=== PATIENT | female | born 1965 | race Caucasian/White ===

== ENCOUNTER 2022-05-16 08:06 | Emergency (ER) | payer OTHER, SELFPAY ==
[2022-05-16 08:11] VITALS: BP 131/86; PULSE 63; RESP 14; TEMP 36.6; O2SAT 99; BMI 25.8
--- NOTE | 2022-05-16 08:45 | ED.GENADULT ---
HPI - General Adult General Time Seen by Provider: 08:45 Date Seen: 05/16/22 Chief complaint: Shortness of Breath/Dyspnea Stated complaint: Difficulty breathing/muscle aches and pain Time Seen by Provider: 05/16/22 08:45 Source: patient and RN notes reviewed Mode of arrival: ambulatory Limitations: no limitations History of Present Illness HPI narrative: Patient is a 57-year-old female coming in with increasing respiratory symptoms and concerned that she has maybe something more than just a regular cold going on. She is sick about 10 days now, got sick a week ago last Monday, today is now Monday. She is woke up sweaty at times but has not taken her temperature. She has been coughing and the cough has been productive throughout this. She did have a negative home COVID test maybe about 6-7 days ago. She has had nasal congestion, no otalgia but ears were itchy at 1 point. She had 1 day of diarrhea with this early on. No other GI symptoms. She has tried her rescue inhaler for her asthma and did not feel like it helped at all. She is feeling short of breath with talking, standing or walking. She also has muscle aches. She is on no maintenance medicines for her asthma. Related Data Home Medications Medication Instructions Recorded Confirmed aspirin 81 mg capsule 81 mg PO DAILY 05/16/22 05/16/22 cetirizine 10 mg tablet (24Hour 10 mg PO DAILY 05/16/22 05/16/22 Allergy) Allergies Allergy/AdvReac Type Severity Reaction Status Date / Time Penicillins Allergy Unknown Rash Verified 05/16/22 08:18 Review of Systems Status of ROS: Reports: 6 or more systems reviewed and unremarkable except as noted in History and below PFSH PFS Social History Smoking Status: Never smoker How often do you have a drink containing alcohol: never AUDIT-C Alcohol total score: 0 Non-prescribed substance use: denies use Exam Const: Vital Signs, click to edit/add: Vital Signs - 24 hr 05/16/22 08:11 05/16/22 11:00 Temperature 97.9 F Pulse Rate [Pulse Oximeter] 63 Respiratory Rate 14 Blood Pressure [Ri ght Upper Arm] 131/86 Pulse Oximetry 99 97 Oxygen Delivery Me thod Room Air Documenting provider has reviewed patient's vital signs: yes Common normals: no apparent distress, average body habitus, oriented x3, no limitations, healthy appearing, alert and well nourished General appearance: cooperative, comfortable, well kempt and well developed HENMT: Common normals: normocephalic, head/scalp atraumatic, hearing grossly normal bilaterally, external ears normal, TM's normal bilaterally, external nose normal, nasal mucous membranes and turbinates normal, moist oral mucous membranes, oropharynx normal, dentition normal and gingiva normal Head and scalp: normocephalic and atraumatic Nose: external nose normal and nasal mucous membranes and turbinates normal External ear: external ears normal Tympanic membrane: TM's normal bilaterally Eye: Common normals: PERRL, EOMs intact bilaterally, conjunctivae normal and no scleral icterus Conjunctiva: conjunctiva(e) normal Pupil: PERRL Neck & C-Spine: Common normals: full ROM, no lymphadenopathy, supple, no meningeal signs, no JVD and thyroid normal Thyroid: thyroid normal Chest: Common normals: inspection of chest normal Resp: Common normals: normal respiratory effort, no retractions and no use of accessory muscles Effort & inspection: able to speak in complete sentences Other: Breath sounds are distant but clear. Here no wheezing or crackles. She is not tachypneic, is wearing a KN95 and can converse through this. Speech is normal, not hoarse. Cardio: Common normals: no JVD, regular rate, regular rhythm, S1 normal heart sound, S2 normal heart sound, no gallops, no clicks and no murmurs Rate: regular rate Rhythm: regular rhythm Heart sounds: S1 normal and S2 normal GI: Common normals: Normal to inspection, nondistended, normoactive bowel sounds present, soft to palpation, non-tender, no hepatosplenomegaly and no masses Palpation: soft and no hepatosplenomegaly Neuro: Common normals: oriented x3 Sensorium/orientation: alert Meningeal signs: no meningeal signs Psych: Appearance: well kempt Course Course Hospital Course: Patient is oxygenating excellently and 99%, will have her on pulse oximetry while she is here waiting for her workup. Nursing staff had appropriately collected a triple swab. Have reviewed with patient she is out of window for treatment on any these viruses but it may be important for us to know in our expectations of her disease course what we are dealing with. I would also like to proceed with a portable chest x-ray and obtain a CBC. Reviewed with her that the white count helps me risk stratify for viruses verses bacteria. She is in agreement with this plan, she is stable. She is not tachypneic, not hypoxic, not tachycardic. This likely represents a viral upper respiratory infection, rule out need for antibiotics with secondary pneumonia setting in. Reevaluation(s) Reevaluation #1: Reviewed chest x-ray with some chronic interstitial findings. Nursing staff was ambulating her with pulse oximetry while I was in the room. She was above 99%. She is feeling short of breath with this though. Discussed with her the possibility of doing a chest CT PE protocol to see the burden of possible COVID pneumonia that could be there, rule out pulmonary emboli. Did review with her it would be less likely oxygenating the way she is in not being tachycardic to have pulmonary emboli but she has had COVID for about 10 days in his clinically worsening with shortness of breath. I would feel much more confident if we could have this chest CT PE protocol done. She is agreement to do this. Obviously reviewed with her that she is COVID positive. She understands home antigen tests may not have picked it up, she may have done it too early at home. She has not had COVID before, she states she has taken all the vaccines. Time: 10:30 Reevaluation #2: Reviewed patient's negative chest CT PE protocol, no infiltrate, did provide her a copy of the report. She is also advised that I did add on a troponin which is 0.00 or normal. Her symptoms are likely just result of COVID and no secondary finding. She does have a pulse oximeter at home. Time: 12:43 Vital Signs Vital signs: Initial Vital Signs Temperature 97.9 F 05/16/22 08:11 Temperature Source Temporal Artery Scan 05/16/22 08:11 Pulse Rate 63 05/16/22 08:11 Pulse Rhythm 05/16/22 08:11 Respiratory Rate 14 05/16/22 08:11 Blood Pressure 131/86 05/16/22 08:11 Blood Pressure Mean 101 05/16/22 08:11 Blood Pressure Position Sitting 05/16/22 08:11 Pulse Oximetry 99 05/16/22 08:11 Oxygen Delivery Method 05/16/22 08:11 Vital Signs Temperature 97.9 F 05/16/22 08:11 Pulse Rate 63 05/16/22 08:11 Respiratory Rate 14 05/16/22 08:11 Blood Pressure 131/86 05/16/22 08:11 Pulse Oximetry 99 05/16/22 08:11 Oxygen Delivery Method 05/16/22 08:11 Temperature 97.9 F 05/16/22 08:11 Pulse Rate 63 05/16/22 08:11 Respiratory Rate 14 05/16/22 08:11 Blood Pressure 131/86 05/16/22 08:11 Pulse Oximetry 97 05/16/22 11:00 Oxygen Delivery Method 05/16/22 08:11 Medical Decision Making Lab Data Lab results reviewed: Yes I reviewed the patient's lab results Labs: Lab Results 05/16/22 05/16/22 05/16/22 Range/Units 08:24 09:05 09:05 WBC 4.38 L (4.50-11.00) K/uL RBC 4.41 (4.00-5.20) m/uL Hgb 12.5 (12.0-16.0) gm/dL Hct 39.5 (33.0-51.0) % MCV 90 (80-100) fL MCH 28 (26-34) pg MCHC 32 (32-36) gm/dL RDW Coeff of [place] 12.6 (11.5-15.5) % Plt Count 271 (140-440) K/uL Neut % (Auto) 70.1 (42.0-72.0) % Lymph % (Auto) 17.4 L (20-44) % [place] % (Auto) 6.6 (0.0-11.0) % Eos % (Auto) 4.8 (0.0-7.0) % Baso % (Auto) 0.9 (0.0-3.0) % Neut # (Auto) 3.10 (1.7-7.0) K/uL Lymph # (Auto) 0.80 L (0.90-2.90) K/uL [place] # (Auto) 0.30 (0.00-0.90) K/UL Eos # (Auto) 0.20 (0.00-0.50) K/uL Baso # (Auto) 0.00 (0.00-0.30) K/uL D-Dimer Quant (PE/DVT) 0.56 H (0.00-0.50) ug/ml SARS-CoV-2 (PCR) POSITIVE SARS-CoV-2 A (Negative) Influenza Type A (PCR) Negative PCR FLU A (Negative) Influenza Type B (PCR) Negative PCR FLU B (Negative) RSV (PCR) Negative PCR RSV (Negative) POC Troponin I (0.01-0.04) ng/ml 05/16/22 Range/Units 12:10 WBC (4.50-11.00) K/uL RBC (4.00-5.20) m/uL Hgb (12.0-16.0) gm/dL Hct (33.0-51.0) % MCV (80-100) fL MCH (26-34) pg MCHC (32-36) gm/dL RDW Coeff of [place] (11.5-15.5) % Plt Count (140-440) K/uL Neut % (Auto) (42.0-72.0) % Lymph % (Auto) (20-44) % [place] % (Auto) (0.0-11.0) % Eos % (Auto) (0.0-7.0) % Baso % (Auto) (0.0-3.0) % Neut # (Auto) (1.7-7.0) K/uL Lymph # (Auto) (0.90-2.90) K/uL [place] # (Auto) (0.00-0.90) K/UL Eos # (Auto) (0.00-0.50) K/uL Baso # (Auto) (0.00-0.30) K/uL D-Dimer Quant (PE/DVT) (0.00-0.50) ug/ml SARS-CoV-2 (PCR) (Negative) Influenza Type A (PCR) (Negative) Influenza Type B (PCR) (Negative) RSV (PCR) (Negative) POC Troponin I 0.00 L (0.01-0.04) ng/ml Imaging Data Chest x-ray: Attestation: I have reviewed the pertinent imaging results. My impression: I see no definitive infiltrate on my preliminary review. Radiologist's impression: Patient: PEG DONOVANDION Facility:[facility] Patient ID:?[id number] Site Patient ID:?[id number]. Site :?[id number] Study:?XRay Chest PCXR-05/16/2022 9:58:15 AM Ordering Physician:Sahra Raygoza Final Report: indication: Cough times 10 days, shortness of breath, asthma Comparison: None available. Technique: Single AP view chest Findings: There is hyperinflation and chronic interstitial change. There is no focal consolidation, effusion, or pneumothorax. The cardiomediastinal silhouette is within normal limits. The bony thorax is grossly intact. Impression: Mild chronic interstitial changes without dense consolidation. Dictated by William Gamboa MD @ 05/16/2022 10:04:38 AM (Electronic Signature) CT scan - chest: Attestation: I have reviewed the pertinent imaging results. Radiologist's impression: Patient: PEG TRIVEDI Facility:?[facility] Patient ID:?[id number] Site Patient ID:?[id number]. Site :?1965 Study:?CT Chest Angio PE 95cc ISOVUE 370-05/16/2022 11:36:12 AM Ordering Physician:?Curly Raygoza Final Report: INDICATION: Shortness of breath. TECHNIQUE: CT chest PE was acquired with 100 cc Isovue 370 IV contrast. COMPARISON: None. FINDINGS: Heart and vasculature: Contrast opacification of the pulmonary arterial tree is adequate. No sign of pulmonary embolism. Heart size is normal. Thoracic aorta and pulmonary artery are normal in caliber. Lungs and pleura: Biapical scarring. Scattered atelectasis, including in the right middle lobe. No suspicious nodules or infiltrates. No pleural effusions, pleural thickening, or pneumothorax. Lymph nodes/mediastinum: Mildly prominent right hilar lymph node, likely reactive. No mediastinal, hilar, or axillary adenopathy. Chest wall: No masses. Upper abdomen: No acute or significant findings. Bones: Unremarkable for age. IMPRESSION: No pulmonary embolism, as questioned. No focal consolidations. Please note that all CT scans at this facility use dose modulation, iterative reconstruction, and/or weight-based dosing when appropriate to reduce radiation dose to as low as reasonably achievable. Dictated by Johnathan Tran MD @ 05/16/2022 12:06:59 PM (Electronic Signature) Critical Care Time Critical Care Time Critical Care Time: No Discharge Plan Discharge Clinical Impression: COVID-19, Shortness of breath Patient Disposition: Home, Self-Care Condition: Stable Instructions: COVID-19 (Coronavirus Disease 2019) (ED) Additional Instructions: Monitor pulse oximetry. If your pulse oximeter starts consistently reading below 90%, do need to be re-evaluated. Likewise, if you feel you are worsening, are developing increasing shortness of breath, worsening cough, new or concerning symptoms to you, I would advise you to seek re-evaluation. No antibiotics or steroids are indicated at this point. Your white blood count is still low suggestive of COVID. I would recommend isolation until you are starting to improve from your symptoms. Activity Level: Activity as Tolerated Prescriptions: No Action aspirin 81 mg capsule 81 mg PO DAILY cetirizine [24Hour Allergy] 10 mg tablet 10 mg PO DAILY Follow Up/Referrals: Sunny Hendricks MD [Primary Care Provider] - Stand Alone Forms: [employer] Info Instructions
--- NOTE | 2022-05-16 08:53 | CRLHL7_ITS ---
For Patients: As a result of the Century Cures Act, medical imaging exams and procedure reports are released immediately into your electronic medical record. You may view this report before your referring provider. If you have questions, please contact your health care provider. indication: Cough times 10 days, shortness of breath, asthma Comparison: None available. Technique: Single AP view chest Findings: There is hyperinflation and chronic interstitial change. There is no focal consolidation, effusion, or pneumothorax. The cardiomediastinal silhouette is within normal limits. The bony thorax is grossly intact. Impression: Mild chronic interstitial changes without dense consolidation. Dictated by William Gamboa MD @ 05/16/2022 10:04:38 AM (Electronically Signed)
[2022-05-16 09:09] LABS: PCR FLU A Negative PCR FLU A (Negative); PCR FLU B Negative PCR FLU B (Negative); PCR RSV Negative PCR RSV (Negative)
[2022-05-16 09:11] LABS: SARS PCR* POSITIVE SARS-CoV-2 (Negative)
[2022-05-16 09:20] LABS: Basophils Percent Auto 0.9 % (0.0-3.0); Eosinophils Percent Auto 4.8 % (0.0-7.0); Hematocrit 39.5 % (33.0-51.0); Hemoglobin* 12.5 gm/dL (12.0-16.0); Immature Granulocytes Pct Auto 0.2 %; Lymphocytes Percent Auto 17.4 % (20-44); Mean Corpuscular HGB Conc 32 gm/dL (32-36); Mean Corpuscular Hemoglobin 28 pg (26-34); Mean Corpuscular Volume 90 fL (80-100); Monocytes Percent Auto 6.6 % (0.0-11.0); Neutrophils Percent Auto 70.1 % (42.0-72.0); Platelet Count* 271 K/uL (140-440); RDW Coefficient of Variation % 12.6 % (11.5-15.5); Red Blood Count 4.41 m/uL (4.00-5.20); White Blood Count* 4.38 K/uL (4.50-11.00)
[2022-05-16 09:23] LABS: Slide Review Reflex No
[2022-05-16 10:28] LABS: D Dimer Quantitative* 0.56 ug/ml (0.00-0.50)
--- NOTE | 2022-05-16 10:32 | CRLHL7_ITS ---
For Patients: As a result of the Century Cures Act, medical imaging exams and procedure reports are released immediately into your electronic medical record. You may view this report before your referring provider. If you have questions, please contact your health care provider. INDICATION: Shortness of breath. TECHNIQUE: CT chest PE was acquired with 100 cc Isovue 370 IV contrast. COMPARISON: None. FINDINGS: Heart and vasculature: Contrast opacification of the pulmonary arterial tree is adequate. No sign of pulmonary embolism. Heart size is normal. Thoracic aorta and pulmonary artery are normal in caliber. Lungs and pleura: Biapical scarring. Scattered atelectasis, including in the right middle lobe. No suspicious nodules or infiltrates. No pleural effusions, pleural thickening, or pneumothorax. Lymph nodes/mediastinum: Mildly prominent right hilar lymph node, likely reactive. No mediastinal, hilar, or axillary adenopathy. Chest wall: No masses. Upper abdomen: No acute or significant findings. Bones: Unremarkable for age. IMPRESSION: No pulmonary embolism, as questioned. No focal consolidations. Please note that all CT scans at this facility use dose modulation, iterative reconstruction, and/or weight-based dosing when appropriate to reduce radiation dose to as low as reasonably achievable. Dictated by Johnathan Tran MD @ 05/16/2022 12:06:59 PM (Electronically Signed)
--- NOTE | 2022-05-16 10:35 | ED.NURSE ---
Pt walked around room, Sats 100%. Pt tolerated ambulation well. notified.
[2022-05-16 11:00] VITALS: O2SAT 97
== END 2022-05-16 12:57 | disposition home or self-care (01) ==
PROVIDERS: Emergency Provider Family Medicine; PCP Family Medicine
DX: U07.1 COVID-19 (principal); R06.02 Shortness of breath
CPT/HCPCS: 36415; 71045; 71260; 84484; 85025; 85379; 87502; 87634; 87635; 94761; 99284; 99285; Q9967

== ENCOUNTER 2022-07-04 14:17 | Outpatient (CLI) | payer OTHER, SELFPAY | END 2022-07-04 14:18 | disposition home or self-care (01) | PROVIDERS: PCP Family Medicine; Visit Provider Internal Medicine | DX: F43.0 Acute stress reaction (principal) | CPT/HCPCS: 80053; 84443 ==

== ENCOUNTER 2022-07-26 08:08 | Outpatient (CLI) | payer OTHER, SELFPAY | END 2022-07-26 08:09 | disposition home or self-care (01) | LOC: NFLDREF 07-27 18:13 | PROVIDERS: PCP Family Medicine; Referring Provider Family Medicine; Visit Provider Family Medicine | DX: Z13.6 Encounter for screening for cardiovascular disorders (principal) | CPT/HCPCS: 80053; 80061 ==

== ENCOUNTER 2022-11-03 13:04 | Outpatient (CLI) | payer OTHER, SELFPAY ==
--- NOTE | 2022-11-03 13:20 | CRLHL7_ITS ---
For Patients: As a result of the Cures Act, medical imaging exams and procedure reports are released immediately into your electronic medical record. You may view this report before your referring provider. If you have questions, please contact your health care provider. BILATERAL SCREENING MAMMOGRAM WITH COMPUTER-AIDED DETECTION AND TOMOSYNTHESIS TECHNIQUE: CC and MLO views were obtained. These mammographic images have been obtained using full-field digital technique. These mammographic images were interpreted with the benefit of computer-aided detection. Breast Tomosynthesis was used in this interpretation. COMPARISON FILM: 11/30/20, 08/05/16, 04/15/14. FINDINGS: There are scattered areas of fibroglandular density IMPRESSION: There is no radiographic evidence for malignancy. ASSESSMENT: BI-RADS Category 1: Negative RECOMMENDATION: Routine screening mammogram in 1 year. A lay language report of this examination will be provided to the patient. Baltazar Pemberton M.D. Diagnostic Radiologist [email or web address] ISAIAS/[email or web address] / be/Dictated by: Baltazar Pemberton MD @ 11/04/2022 8:26:00 AM (Electronically Signed)
== END 2022-11-03 13:05 | disposition home or self-care (01) ==
LOC: MAMMO 13:05
PROVIDERS: PCP Family Medicine; Visit Provider Family Medicine
DX: Z12.31 Encounter for screening mammogram for malignant neoplasm of breast (principal)
CPT/HCPCS: 77063; 77067

== ENCOUNTER 2022-11-07 13:00 | Outpatient (RCR) | payer OTHER, SELFPAY | END 2022-11-07 13:49 | disposition home or self-care (01) | PROVIDERS: PCP Family Medicine; Visit Provider Family Medicine | DX: M25.561 Pain in right knee (principal); M25.562 Pain in left knee; Z51.89 Encounter for other specified aftercare | CPT/HCPCS: 97110; 97112; 97161 ==

== ENCOUNTER 2023-01-11 08:42 | Emergency (ER) | payer OTHER, SELFPAY ==
[2023-01-11 08:47] VITALS: BP 171/102; PULSE 73; RESP 18; TEMP 35.9; O2SAT 99; BMI 27.4
--- NOTE | 2023-01-11 09:03 | CRLHL7_ITS ---
For Patients: As a result of the Century Cures Act, medical imaging exams and procedure reports are released immediately into your electronic medical record. You may view this report before your referring provider. If you have questions, please contact your health care provider. INDICATION: Fall. Left cheek and jaw pain.. TECHNIQUE: CT head without contrast. COMPARISON: None. FINDINGS: CSF spaces: Within normal limits for age. Brain parenchyma and extra-axial spaces: The rinaldi-white differentiation is normal. No sign of mass, hemorrhage, or midline shift. No extra-axial fluid collection. Incidental Chiari 1 malformation is the cerebellar tonsils extend 11 mm below the foramen magnum (series 4; image 39). Skull base and calvarium: The visualized paranasal sinuses and mastoid air cells demonstrate no acute or significant findings. The visualized orbits are grossly unremarkable. No skull fractures. Bilateral osteoarthrosis of the temporomandibular joints. IMPRESSION: No acute traumatic injury is identified. 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 Please note that all CT scans at this facility use dose modulation, iterative reconstruction, and/or weight-based dosing when appropriate to reduce radiation dose to as low as reasonably achievable. Dictated by Tai Sorenson MD @ 01/11/2023 9:32:28 AM (Electronically Signed)
--- NOTE | 2023-01-11 09:03 | CRLHL7_ITS ---
For Patients: As a result of the Cures Act, medical imaging exams and procedure reports are released immediately into your electronic medical record. You may view this report before your referring provider. If you have questions, please contact your health care provider. INDICATION: Fall. Left cheek and jaw pain. TECHNIQUE: CT maxillofacial without contrast. COMPARISON: None. FINDINGS: Extensive streak artifact associated with dental amalgam limits interpretation of the regional anatomy affected by the streak artifact. Facial bones: No fractures or bone lesions. Specifically the nasal bones, temporomandibular joints, maxilla and mandible appear intact. Mild bilateral symmetrical temporomandibular joint osteoarthrosis. Orbits and globes: Unremarkable. Globes are intact. No sign of intraorbital hemorrhage or emphysema. Sinuses: No evidence of hemo sinus. Mild bilateral maxillary sinus and right frontal recess mucosal thickening. An small retention cyst along the roof of the sphenoid sinus. Rightward deviation of the anterior cartilaginous nasal septum. Left-sided posterior bony nasal septal spur. Soft tissues: Partially obscured (by streak artifact associated with dental amalgam) subcutaneous fat irregular hyperdensity consistent with a soft tissue hematoma associated with surrounding subcutaneous fat stranding consistent with edema. IMPRESSION: Soft tissue hematoma (obscured by beam hardening artifact associated with dental amalgam) superficial to the left maxillary alveolar ridge with surrounding subcutaneous edema. No fracture. Please note that all CT scans at this facility use dose modulation, iterative reconstruction, and/or weight-based dosing when appropriate to reduce radiation dose to as low as reasonably achievable. Dictated by Tai Sorenson MD @ 01/11/2023 9:38:26 AM (Electronically Signed)
--- NOTE | 2023-01-11 09:04 | ED.GENADULT ---
HPI - General Adult General Time Seen by Provider: 09:04 Date Seen: 01/11/23 Chief complaint: Fall/Minor Trauma Stated complaint: fell on face Time Seen by Provider: 01/11/23 08:55 Source: patient Mode of arrival: ambulatory Limitations: no limitations History of Present Illness HPI narrative: Patient is a 57-year-old white female who was walking yesterday was something in her arms, and tripped on the sidewalk fell on the left side of her face. Had no loss conscious, today as a headache, left cheek and left jaw pain. She feels she might have cracked her left frontal tooth. She does notice decent dental occlusion but is concerned about her teeth. She denies neck pain back pain chest pain breathing problem or neurologic complaint, she does have a mild frontal headache. The patient simply lost her balance and tripped. No recent illness. She did get her COVID shot recently Related Data Home Medications Medication Instructions Recorded Confirmed cetirizine 10 mg tablet (24Hour 10 mg PO DAILY 05/16/22 07/28/22 Allergy) acetaminophen 500 mg tablet 500 mg PO QHS PRN 07/04/22 07/28/22 (Tylenol Extra Strength) calcium 166.75 mg-vit D3 166.75 1 tab PO QDAY 07/04/22 07/28/22 unit-vit C-vit K2-minerals capsule (Bone Essentials) turmeric 400 mg capsule 400 mg PO .QD 07/04/22 07/28/22 aspirin 81 mg tablet,delayed 81 mg PO QDAY 07/28/22 07/28/22 release (Adult Low Dose Aspirin) Previous Rx's Medication Instructions Recorded albuterol sulfate 90 mcg/actuation 2 inh inhalation Q6-8H PRN 07/28/22 aerosol inhaler (ProAir HFA) shortness of breath or wheezing #6.7 grams fluticasone propionate 110 1 puff inhalation BID #12 grams 07/28/22 mcg/actuation HFA aerosol inhaler (Flovent HFA) Allergies Allergy/AdvReac Type Severity Reaction Status Date / Time fish derived Allergy Mild Rash Verified 07/28/22 07:21 Penicillins Allergy Unknown Rash Verified 07/28/22 07:21 shellfish derived Allergy Unknown Unknown Verified 07/28/22 07:21 coconut AdvReac Intermediate GI upset Verified 07/28/22 07:21 chickpeas Allergy Intermediate digestive Uncoded 07/28/22 07:21 swelling oat pollen Allergy Unknown Unknown Uncoded 07/28/22 07:21 Review of Systems Status of ROS: Reports: 6 or more systems reviewed and unremarkable except as noted in History and below PFSH [facility] Medical History Bilateral knee pain ?M25.561 - Pain in right knee (ICD-10) ?M25.562 - Pain in left knee (ICD-10) Mild intermittent asthma ?J45.20 - Mild intermittent asthma, uncomplicated (ICD-10) Stress reaction ?F43.0 - Acute stress reaction (ICD-10) Vulvar cyst ?N90.7 - Vulvar cyst (ICD-10) 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) Anemia ?D64.9 - Anemia, unspecified (ICD-10) COVID-19 ?U07.1 - COVID-19 (ICD-10) Surgical History History of D&C (1997) ?Z98.890 - Other specified postprocedural states (ICD-10) delivery delivered (1998) ?O82 - Encounter for delivery without indication (ICD-10) Hx laparoscopic cholecystectomy (2018) ?Z90.49 - Acquired absence of other specified parts of digestive tract (ICD-10) Family History Mother Asthma Paternal Grandfather Colon cancer, Onset Age: 60 Maternal Grandmother Diabetes Other Adopted person Social History Narrative: , 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, 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 Lifetime nonsmoker Does not drink alcohol Exercise 6 times a week by walking 2 months Smoking Status: Never smoker Do you use any of these nicotine containing products: None Second hand tobacco smoke exposure: No How often do you have a drink containing alcohol: never How often do you have six or more drinks on one occasion: Never AUDIT-C Alcohol total score: 0 Non-prescribed substance use: denies use Little interest or pleasure in doing things: not at all Feeling down, depressed, or hopeless: several days service: No Exam Narrative: Exam Narrative: Objective: Patient is ambulatory, vital signs show blood pressure 171/102, temperature 96.6?, O2 sat 99% on room air HEENT shows swollen left maxillary area with some tenderness, no zygoma tenderness, nose appears stable no midline shift, pupils equal react to light, neck is supple nontender no midline tenderness full range of motion. Chest back abdomen unremarkable The patient's left hand shows a little bruise in her thenar eminence, but she has full range of motion and no marked point tenderness She has an abrasion over her left knee but full range of motion is ambulatory as mention Patient is ambulatory as mention Const: Vital Signs, click to edit/add: Vital Signs - 24 hr 01/11/23 08:47 Temperature 96.6 F L Pulse Rate [Right Pulse Oximeter] 73 Respiratory Rate 18 Blood Pressure [Ri ght Upper Arm] 171/102 H Pulse Oximetry 99 Oxygen Delivery Me thod Room Air Course Vital Signs Vital signs: Initial Vital Signs Temperature 96.6 F L 01/11/23 08:47 Temperature Source Temporal Artery Scan 01/11/23 08:47 Pulse Rate 73 01/11/23 08:47 Respiratory Rate 18 01/11/23 08:47 Blood Pressure 171/102 H 01/11/23 08:47 Blood Pressure Mean 125 H 01/11/23 08:47 Blood Pressure Position Sitting 01/11/23 08:47 Pulse Oximetry 99 01/11/23 08:47 Oxygen Delivery Method Room Air 01/11/23 08:47 Vital Signs Temperature 96.6 F L 01/11/23 08:47 Pulse Rate 73 01/11/23 08:47 Respiratory Rate 18 01/11/23 08:47 Blood Pressure 171/102 H 01/11/23 08:47 Pulse Oximetry 99 01/11/23 08:47 Oxygen Delivery Method Room Air 01/11/23 08:47 Temperature 96.6 F L 01/11/23 08:47 Pulse Rate 73 01/11/23 08:47 Respiratory Rate 18 01/11/23 08:47 Blood Pressure 171/102 H 01/11/23 08:47 Pulse Oximetry 99 01/11/23 08:47 Oxygen Delivery Method Room Air 01/11/23 08:47 Medical Decision Making [facility] Narrative Medical decision making narrative: [age] year white female with a history of fall yesterday with left cheek swelling left frontal tooth injury, abrasions on her left knee and hand. At this point the think the patient likely does not need imaging of her hand her knee, but does need imaging of her head and her face given her headache and her facial swelling. If her head and facial CT are within normal limits then dental appointment be recommended for her left frontal tooth that does appear to have a small crack in it. Will check on her tetanus status as well Addendum 9:48 a.m. the patient's tetanus is up-to-date, or CT scan of her head is unremarkable other than a benign-appearing Chiari 1 malformation, the facial hematoma noted in the cheek is the only finding on facial CT no fractures noted. Recommend dental appointment, ice to the cheek Advil as needed, discuss care with primary care doctor in the follow-up in the next few days Discharge Plan Discharge Clinical Impression: Dental injury, Contusion of face, Fall Patient Disposition: Home, Self-Care Condition: Stable Additional Instructions: Light activity, ice to the facial areas that are swollen, may use some ibuprofen or Tylenol for discomfort. Recommended dental appointment to check your teeth. Would follow up with your primary care doctor in the next 3-4 days for reassessment, return to ED sooner with problems or concerns. Activity Level: Light activity Discharge Diet: Regular Prescriptions: No Action Bone Essentials 166.75 mg- 166.75 unit capsule 1 tab PO QDAY turmeric 400 mg capsule 400 mg PO .QD acetaminophen [Tylenol Extra Strength] 500 mg tablet 500 mg PO QHS PRN aspirin [Adult Low Dose Aspirin] 81 mg tablet,delayed release (DR/EC) 81 mg PO QDAY fluticasone propionate [Flovent HFA] 110 mcg/actuation HFA aerosol inhaler 1 puff inhalation BID Qty: 12 0RF albuterol sulfate [ProAir HFA] 90 mcg/actuation HFA aerosol inhaler 2 inh inhalation Q6-8H PRN (Reason: shortness of breath or wheezing) Qty: 6.7 3RF cetirizine [24Hour Allergy] 10 mg tablet 10 mg PO DAILY Follow Up/Referrals: Tawana Tapia MD [Primary Care Provider] - Stand Alone Forms: A&[facility] Info Instructions
== END 2023-01-11 09:53 | disposition home or self-care (01) ==
LOC: ED 09:24
PROVIDERS: Emergency Provider Family Medicine; PCP Family Medicine
DX: S00.83XA Contusion of other part of head, initial encounter (principal); S09.93XA Unspecified injury of face, initial encounter; W01.0XXA Fall on same level from slipping, tripping and stumbling without subsequent striking against object, initial encounter
CPT/HCPCS: 70450; 70486; 99284

== ENCOUNTER 2024-01-28 20:19 | Emergency (ER) | payer OTHER, SELFPAY ==
[2024-01-28 20:26] VITALS: BP 165/92; PULSE 69; RESP 16; TEMP 36.2; O2SAT 100; BMI 26.6
--- NOTE | 2024-01-28 20:53 | ED.GENADULT ---
HPI - General Adult General Date Seen: 01/28/24 Chief complaint: Insect Bite Stated complaint: tick bite Time Seen by Provider: 01/28/24 20:21 Source: patient Mode of arrival: ambulatory Limitations: no limitations History of Present Illness HPI narrative: Patient is a 58-year-old female who noticed a tick bite behind her right popliteal fossa, she removed the tick and there is an area of redness which brought her into the hospital she is otherwise asymptomatic with no other symptoms. She has no previous history of Lyme disease Buzz is not want to get this. Allergies are listed. The tech was brown in color she lives in a place that is in the [facility], lots a deer are round. Related Data Home Medications ?Medication ?Instructions ?Recorded ?Confirmed cetirizine 10 mg tablet (24Hour 10 mg PO DAILY 05/16/22 03/17/23 Allergy) acetaminophen 500 mg tablet 500 mg PO QHS PRN 07/04/22 03/17/23 (Tylenol Extra Strength) calcium 166.75 mg-vit D3 166.75 1 tab PO QDAY 07/04/22 03/17/23 unit-vit C-vit K2-minerals capsule (Bone Essentials) turmeric 400 mg capsule 400 mg PO .QD 07/04/22 03/17/23 aspirin 81 mg tablet,delayed 81 mg PO QDAY 07/28/22 03/17/23 release (Adult Low Dose Aspirin) naproxen sodium 220 mg tablet 220 mg PO QHS PRN 01/13/23 03/17/23 (Aleve) Previous Rx's ?Medication ?Instructions ?Recorded albuterol sulfate 90 mcg/actuation 2 inh inhalation Q6-8H PRN 07/28/22 aerosol inhaler (ProAir HFA) shortness of breath or wheezing #6.7 grams nortriptyline 25 mg capsule 25 mg PO QHS #90 caps 03/17/23 Allergies Allergy/AdvReac Type Severity Reaction Status Date / Time fish derived Allergy Mild Rash Verified 03/17/23 08:03 Penicillins Allergy Unknown Rash Verified 03/17/23 08:03 shellfish derived Allergy Unknown Unknown Verified 03/17/23 08:03 coconut AdvReac Intermediate GI upset Verified 03/17/23 08:03 chickpeas Allergy Intermediate digestive Uncoded 03/17/23 08:03 swelling oat pollen Allergy Unknown Unknown Uncoded 03/17/23 08:03 Review of Systems Status of ROS: Reports: 6 or more systems reviewed and unremarkable except as noted in History and below PFSH PFSH Medical History Bilateral knee pain ?M25.561 - Pain in right knee (ICD-10) ?M25.562 - Pain in left knee (ICD-10) Mild intermittent asthma ?J45.20 - Mild intermittent asthma, uncomplicated (ICD-10) Stress reaction ?F43.0 - Acute stress reaction (ICD-10) Vulvar cyst ?N90.7 - Vulvar cyst (ICD-10) 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) Anemia ?D64.9 - Anemia, unspecified (ICD-10) COVID-19 ?U07.1 - COVID-19 (ICD-10) Surgical History History of D&C (1997) ?Z98.890 - Other specified postprocedural states (ICD-10) delivery delivered (1998) ?O82 - Encounter for delivery without indication (ICD-10) Hx laparoscopic cholecystectomy (2018) ?Z90.49 - Acquired absence of other specified parts of digestive tract (ICD-10) Family History Mother Asthma Paternal Grandfather Colon cancer, Onset Age: 60 Maternal Grandmother Diabetes Other Adopted person Social History Narrative: , 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, 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 Lifetime nonsmoker Does not drink alcohol Exercise 6 times a week by walking 2 months Smoking Status: Never smoker Do you use any of these nicotine containing products: None Second hand tobacco smoke exposure: No How often do you have a drink containing alcohol: never How often do you have six or more drinks on one occasion: Never AUDIT-C Alcohol total score: 0 Non-prescribed substance use: denies use Little interest or pleasure in doing things: not at all Feeling down, depressed, or hopeless: several days service: No Exam Narrative: Exam Narrative: On examination behind her right popliteal fossa, there is an area of redness is approximately dime-sized clearly not a bull's-eye lesion. There is no tenderness she is wondering if there is maybe a takes head there still. No lymphadenopathy no other tenderness is noted no signs of cellulitis or infection. Const: Vital Signs, click to edit/add: Vital Signs - 24 hr 01/28/24 20:26 Temperature 97.1 F L Pulse Rate [Left P ulse Oximeter] 69 Respiratory Rate 16 Blood Pressure [Ri ght Upper Arm] 165/92 H Pulse Oximetry 100 Oxygen Delivery Me thod Room Air Course Vital Signs Vital signs: Initial Vital Signs Temperature 97.1 F L 01/28/24 20:26 Temperature Source Temporal Artery Scan 01/28/24 20:26 Pulse Rate 69 01/28/24 20:26 Pulse Rhythm Regular 01/28/24 20:26 Respiratory Rate 16 01/28/24 20:26 Blood Pressure 165/92 H 01/28/24 20:26 Blood Pressure Mean 116 H 01/28/24 20:26 Blood Pressure Position Sitting 01/28/24 20:26 Pulse Oximetry 100 01/28/24 20:26 Oxygen Delivery Method Room Air 01/28/24 20:26 Vital Signs Temperature 97.1 F L 01/28/24 20:26 Pulse Rate 69 01/28/24 20:26 Respiratory Rate 16 01/28/24 20:26 Blood Pressure 165/92 H 01/28/24 20:26 Pulse Oximetry 100 01/28/24 20:26 Oxygen Delivery Method Room Air 01/28/24 20:26 Temperature 97.1 F L 01/28/24 20:26 Pulse Rate 69 01/28/24 20:26 Respiratory Rate 16 01/28/24 20:26 Blood Pressure 165/92 H 01/28/24 20:26 Pulse Oximetry 100 01/28/24 20:26 Oxygen Delivery Method Room Air 01/28/24 20:26 Medical Decision Making MDM Narrative Medical decision making narrative: I discussed with her that prophylaxis is probably a good idea here. 200 mg of doxycycline x1, is very effective for prophylaxis of Lyme disease and other possible tick-borne illnesses. I have no lower suspicion that this was a deer tick the way she describes, but she never can be 2 safe. After this discussion she is in agreement. Discharge Plan Discharge Clinical Impression: Tick bite Patient Disposition: Home w/ Parent or Adult Condition: Stable Instructions: Tick Bite (ED) Additional Instructions: Home rest you just needed the 1 time dose of doxycycline, I would put a little bacitracin on the area of the wound, and watch this, if it does become more of a bull's-eye type lesion, then come back. Fevers chills or other symptoms also should prompt re-evaluation. The doxycycline can make it a little bit nauseous, but most people tolerated pretty well Prescriptions: No Action Bone Essentials 166.75 mg- 166.75 unit capsule 1 tab PO QDAY turmeric 400 mg capsule 400 mg PO .QD acetaminophen [Tylenol Extra Strength] 500 mg tablet 500 mg PO QHS PRN naproxen sodium [Aleve] 220 mg tablet 220 mg PO QHS PRN nortriptyline 25 mg capsule 25 mg PO QHS Qty: 90 0RF aspirin [Adult Low Dose Aspirin] 81 mg tablet,delayed release (DR/EC) 81 mg PO QDAY albuterol sulfate [ProAir HFA] 90 mcg/actuation HFA aerosol inhaler 2 inh inhalation Q6-8H PRN (Reason: shortness of breath or wheezing) Qty: 6.7 3RF cetirizine [24Hour Allergy] 10 mg tablet 10 mg PO DAILY Follow Up/Referrals: Tawana Tapia MD [Primary Care Provider] - Stand Alone Forms: [facility] Info Instructions
[2024-01-28] MEDS: DOXYCYCLINE HYCLATE 100 MG 200 MG PO (20:56)
--- OUTSIDE RECORDS SUMMARY | 2024-01-28 20:59 | XMS_ITS | Referral Summary ---
Author Organization [facility] Address [address] [place] [address] Care Team Providers Care Cat Scanner Operator Name Role Phone Ramona Collado APRN, C.N.P., D.N.P. P [facility] Care Provider Source Comments Patient records contain information from all sites at [facility]. For routine questions regarding patient records, call [phone] during business hours, M-F 8:00 AM - 5:00 PM Central Time. Record requests for emergency care only can be directed to [phone] at any time.[facility] Encounters Date Type Department Care Team Description 12/18/2023 9:09 AM CDT - 12/18/2023 11:59 PM CDT Hospital Encounter Department of Radiology in [address] [phone] Ramona Collado APRN, C.N.P., D.N.P. Screening Mammogram Breast Cancer Discharge Disposition: Home or Self Care 11/14/2023 Orders Only [facility] P[facility] Ramona Collado APRN, C.N.P., D.N.P. Screening Mammogram Breast Cancer from Last 3 Months Allergies Active Allergy Reactions Criticality Noted Date Comments Animal Dander Hives with other symptoms including blisters,Wheezing with other systemic symptoms especially skin reaction High 04/10/1969 Chickpea Other (see comments),Edema,GI intolerance High 04/10/2009 Digestive swelling Coconut Edema,GI intolerance High 04/10/2009 Docosahexaenoic Acid-Epa Other (see comments) 0 07/28/2008 Fish Derived Edema,GI intolerance,Rash Low 04/10/2004 House Dust Other (see comments) 02/24/2023 Dust mites Mold Extracts Other (see comments) 07/28/2008 Oats Other (see comments) 01/13/2023 Oat pollen Penicillins Hives only, no other systemic symptoms,Rash Low 07/28/2008 Pollen Extracts Other (see comments) 07/28/2008 Shellfish Containing Products Edema, suggestive of allergic reaction, i.e., lip, tongue, or throat swelling High 07/28/2008 Tree And Shrub Pollen Itching 04/10/1979 Medications albuterol 90 mcg/actuation inhaler 2 puffs every 4-6 hours PRN cough. 04/10/1979 Active aspirin (Roberta Low Dose Aspirin) [address] tablet Take 81 mg by mouth daily. 04/10/2012 Active calcium/vits D3/C/K2/mineral s (BONE ESSENTIALS ORAL) Take 2 capsules by mouth daily. 04/10/2017 Active cetirizine (ZyrTEC) 10 mg tablet Take 10 mg by mouth daily. 04/10/2009 Active naproxen sodium (Aleve) 220 mg tablet Take 220 mg by mouth daily. As needed 04/10/1994 Active TURMERIC ORAL 500 mg. W/sisi 50 m gummies daily 04/10/2019 Active nortriptyline (PAMELOR) 25 mg capsule Take 1 capsule (25 mg total) by mouth at bedtime. 90 capsule 3 05/26/2023 Active flaxseed oiL 1,000 mg capsule Take 1 capsule by mouth daily. 06/12/2023 Active Immunizations Name Administration Dates Next Due H1N1 All Forms 2009 Influenza, Injectable, Mdck, Quadrivalent 01/31/2022,01/19/2021 Influenza, Injectable, Quadrivalent 12/09,02/04/2019,01/04/2018,2015,12/29/2014 Influenza, Seasonal, Injectable 01/04/2011,01/08 Tdap 08/02/2016 influenza vaccine quad (FLUZONE/FLUARIX) (6 months and older)(PF) 01/13/2023,01/31/2022,01/19/2021,2019,02/04/2019,01/04/2018,12/30/2015,0 12/29/2014,01/09/2014,01/14/2013, 011,01/08/2010,2009 Social History Tobacco Use Types Packs/Day Years Used Date Smoking Tobacco: Never Passive Smoke Exposure: Past Smokeless Tobacco: Never Alcohol Use Standard Drinks/Week Comments Not Currently 0 (1 standard drink = 0.6 oz pur e alcohol) Overall Financial Resource Strain (CARDIA) Answe r Date Recorded How hard is it for you to pa y for the very basics like food, housing, medical care, and heating? Not hard at all 02/23/2023 PHQ-2 Answer Date Recorded PHQ-2 Score 0 05/26/2023 Exercise Vital Sign Answer Date Recorde d On average, how many days pe r week do you engage in moderate to strenuous exercise (like a brisk walk)? 7 days 02/23/2023 On average, how many minutes do you engage in exercise at this level? 30 min 02/23/2023 Hunger Vital Sign Answer Date Recorded Within the past 12 months, y ou worried that your food would run out before you got the money to buy more. Never true 02/24/20 23 Within the past 12 months, t he food you bought just didn't last and you didn't have money to get more. Never true 02/23/2023 PRAPARE - Transportation Answer Date Re corded In the past 12 months, has l ack of transportation kept you from medical appointments or from getting medications? No 02/08 In the past 12 months, has l ack of transportation kept you from meetings, work, or from getting things needed for daily living? No 02/23/2023 Depression Answer Date Recor ded PHQ-9 Total Score (max 27) 0 05/26 Nutrition Answer Date Recorded On average, how many serving s of fruits and vegetables do you eat per day (serving size is equal to 1 cup or approximately the size of a tennis ball)? 3-5 02/23/2023 Dental Answer Date Recorded Dental: Regular Dentist Yes 02/24/20 Employment Answer Date Recorded Employment status Employed and actively working without restrictions 02/23/2023 Housing Stability Answer Date Recorded What is your living situation today? I have a [facility] to live 02/23/2023 Comments No Sex and Gender Information Value Date Recorded Sex Assigned at Female 02/25/2023 8:[address] TECH Legal Sex Female 9:[address] TECH Gender Identity Female 02/25/2023 8:[address] TECH Sexual Orientation Straight 02/25/2023 8: [address] TECH Last Filed Vital Signs Vital Sign Reading Time Taken Comments Blood Pressure 138/83 06/09/2023 9:[address] TECH Pulse 66 06/09/2023 9:[address] TECH Temperature 36.1 ??C (97 ??F) 05/26/2023 11:[address] TECH Respiratory Rate 16 05/26/2023 11:[address] TECH Oxygen Saturation - - Inhaled Oxygen Concentration - - Weight 78 kg (171 lb 15.3 oz) 09/01/2023 12:47 P M CDT Height 169.1 cm (5' 6.58) 09/01/2023 12:47 PM C DT Body Mass Index 27.28 09/01/2023 12:47 PM CDT Plan of Treatment Not on file Medical Devices Implanted Type Area Lubrication Equipment Servicer Device Identifier Shelf Expiration Date Model / Serial / Lot Dental Implant Misc Other Mouth Description:1 dental implant Procedures Procedure Name Priority Date/Time Associated Diagnosis Comments BI BREAST SCREENING BILATERAL WITH TOMOSYNTHESIS RAD - Routine (most inpatients and all outpatients) 12/18/2023 9:23 AM CDT Screening Mammogram Breast Cancer BASIC METABOLIC PANEL, S/P Routine 06/09/2023 9:[address] TECH Health Maintenance Examination Adult LIPID PANEL, S Routine 06/09/2023 9:[address] TECH Health Maintenance Examination Adult COLONOSCOPY Routine 07/06/2021 from Last 3 Months or Most Recently Relevant to Health Maintenance Results * BI Breast Screening Bilateral with Tomosynthesis (12/18/2023 9:23 AM CDT) Anatomical Region Laterality Modality Breast, Breast Imaging RST L OS, Breast Imaging ARZ LOS, Breast Imaging FLA LOS Bilateral Mammography Impressions 12/19/2023 9:17 AM CDT Negative. RECOMMENDATION: ??Annual Screening Mammogram ASSESSMENT: ??BI-RADS: 1: Negative. Narrative 12/19/2023 9:17 AM CDT EXAM: ??BI BREAST SCREENING BILATERAL WITH TOMOSYNTHESIS Current study was evaluated with a Computer Aided Detection (CAD) system. INDICATION: ??Screening mammogram. COMPARISON: ??Prior exam(s) were available and reviewed for comparison. DENSITY: ??b. There are scattered areas of fibroglandular density. FINDINGS: ??No mammographic findings of malignancy. Procedure Note Mulu Huggins D.O. - 12/19/2023 EXAM: BI BREAST SCREENING BILATERAL WITH TOMOSYNTHESIS Current study was evaluated with a Computer Aided Detection (CAD) system. INDICATION: Screening mammogram. COMPARISON: Prior exam(s) were available and reviewed for comparison. DENSITY: b. There are scattered areas of fibroglandular density. FINDINGS: No mammographic findings of malignancy. IMPRESSION: Negative. RECOMMENDATION: Annual Screening Mammogram ASSESSMENT: BI-RADS: 1: Negative. Ramona Collado APRN, C.N.P., D.N.P. IM G BI PROCEDURES Final Result * Lipid Panel (06/09/2023 9:[address] TECH) Pathologist [facility] Triglycerides 37 mg/dL 06/09/2023 1:[address] TECH OWAT Comment: ----REFERENCE VALUE---- Normal: <150 mg/dL Borderline High: 150-199 mg/dL High: 200-499 mg/dL Very High: > or =500 mg/dL Cholesterol, Total 142 mg/dL 2023 1:[address] TECH OWAT Comment: ----REFERENCE VALUE---- Desirable: < 200 mg/dL Borderline High: 200 - 239 mg/dL High: > or = 240 mg/dL Cholesterol, LDL, Calculated 67 mg/dL 06/09/2023 1:[address] TECH OWAT Comment: ----REFERENCE VALUE---- Desirable: <100 mg/dL Above Desirable: 100-129 mg/dL Borderline High: 130-159 mg/dL High: 160-189 mg/dL Very High: >=190 mg/dL ----ADDITIONAL INFORMATION---- LDL cholesterol calculated using the Mcmahon/NIH equation. Cholesterol, HDL 66 >=50 mg/dL 06/09/19 1:[address] TECH OWAT Cholesterol, Non-HDL, Calculated 76 mg/dL 06/09/2023 1:[address] TECH OWAT Comment: ----REFERENCE VALUE---- Desirable: <130 mg/dL Above Desirable: 130-159 mg/dL Borderline High: 160-189 mg/dL High: 190-219 mg/dL Very High: > or =220 mg/dL Fasting (8 HR or more) Yes 06/09/2023 1:[address] TECH OWAT Blood (Blood, Venous) 06/09/2023 9:[address] TECH 06/09/2023 1:[address] TECH us Ramona Collado APRN, C.N.P., D.N.P. LA B BLOOD ADD-ON Final Result [facility] [address] [place] [address], [facility] OWAT [facility] [place] [address] [place] [address] * Basic Metabolic Panel (06/09/2023 9:[address] TECH) Potassium, P 4.4 3.6 - 5.2 mmol/L 06/09/2023 1:[address] TECH OWAT Sodium, P 142 135 - 145 mmol/L 06/09/2023 1:[address] TECH OWAT Chloride, P 105 98 - 107 mmol/L 06/09/2023 1:[address] TECH OWAT Bicarbonate, P 28 22 - 29 mmol/L 06/09/2023 1:[address] TECH OWAT Anion Gap, P 9 7 - 15 06/09/2023 1:[address] TECH OWAT BUN (Blood Urea Nitrogen), P 10 6 - 21 mg/dL 06/09/2023 1:[address] TECH OWAT Creatinine 0.88 0.59 - 1.04 mg/dL 06/09/2023 1:[address] TECH OWAT Estimated GFR (eGFR) 76 >=60 mL/min/BSA 06/09/2023 1:[address] TECH OWAT Comment: Estimated GFR calculated using the 2020 CKD_EPI creatinine equation. Calcium, Total, P 9.1 8.6 - 10.0 mg/dL 06/09/2023 1:[address] TECH OWAT Glucose, P 94 70 - 140 mg/dL 06/09/2023 1:[address] TECH OWAT Blood (Blood, Venous) 06/09/2023 9:[address] TECH 06/09/2023 1:[address] TECH Ramona Collado APRN, C.N.P., D.N.P. LA B BLOOD ADD-ON Final Result [facility] [address], [place] [address], [facility] OWAT [facility] [place] [address] [place] [address] * Colonoscopy (07/06/2021) EXT Colonoscopy Normal - See Scanned Report for Details Normal - See Scanned Report for Details, HIMS - Report Received and Scanned Comment:See media from 06/16 patient uploaded documents [id number] [facility]. Attending: Ivet Peterson MD. us Historical Provider GI PROCEDURE ORDERABLES Aimee l Result from Last 3 Months or Most Recently Relevant to Health Maintenance Insurance [employer] Care Teams Cat Scanner Operator Relationship Specialty Start Date End Date Chapin-Ramona Rachel APRN, C.N.P., D.N.P. [address] [place] [address] PCP - General Family Medicine 05/17/23
--- OUTSIDE RECORDS SUMMARY | 2024-01-28 20:59 | XMS_ITS | Encounter Summary ---
Author Organization [facility] Address [address] [place] [address] Care Team Providers Care Per Diem Nurse Name Role Phone Ramona Collado APRN, C.N.P., D.N.P. P [facility] Care Provider Reason for Referral * Outpatient (Routine) - Closed Specialty Diagnoses / Procedures Referred By Annie t Referred To Contact Diagnoses Screening Mammogram Breast Cancer Procedures BI Breast Screening Bilateral with Tomosynthesis Ramona Collado APRN, C.N.P., D.N.P. [address] [place] [address] Phone: tel: fax: [facility] Region Referral ID Status Reason Start Date Expiration Date Visits Re quested Visits Authorized [id number] Closed 11/14/2023 11/13/2024 1 1 Encounter Details Date Type Department Care Team (Late st Contact Info) Description 11/14/2023 Orders Only [facility]CP [facility] MNT Ramona Collado APRN, C.N.P., D.N.P. [address] [place] [phone] Screening Mammogram Breast Cancer Social History Tobacco Use Types Packs/Day Years [...] money to buy more. Never true 02/24/20 Within the past 12 months, t he [...] your living situation today? I have a [facility] place to live 02/23/2023 Comments No Sex and Gender Information Value Date Recorded Sex Assigned at Female 02/25/2023 8:57 PM PILOT CONTROL OPERATOR HELPER Legal Sex Female 9:24 AM PILOT CONTROL OPERATOR HELPER Gender Identity Female 02/25/2023 8:57 PM PILOT CONTROL OPERATOR HELPER Sexual Orientation Straight 02/25/2023 8: 57 PM PILOT CONTROL OPERATOR HELPER documented as of this encounter Plan of Treatment Not on file documented as of this encounter Results * BI Breast Screening Bilateral with [...] D.N.P. IM G BI PROCEDURES Final Result documented in this encounter Visit Diagnoses Diagnosis Screening Mammogram Breast Cancer Screening Mammogram Breast Cancer documented in this encounter Additional Health Concerns Assessment Noted Time PHQ-9 Depression Total Score: 0 05/26/19 24 12:34 PM PILOT CONTROL OPERATOR HELPER documented as of this encounter Care Teams Per Diem Nurse Relationship Specialty Start Date End Date Miles-Ramona Rachel APRN, C.N.P., D.N.P. [address] [place] [address] PCP - General Family Medicine 05/17/23 documented as of this encounter
--- OUTSIDE RECORDS SUMMARY | 2024-01-28 20:59 | XMS_ITS ---
Author Organization [facility] Address [address] [place] [address] Care Team Providers Care Brokerage Coordinator Name Role Phone Unavailable Unavailable Unavailable Surgery Details Not on file Complications Check Surgery Details section. Procedure Estimated Blood Loss Check Surgery Details section. Procedure Findings Check Surgery Details section. Procedure Specimens Taken Check Surgery Details section.
--- OUTSIDE RECORDS SUMMARY | 2024-01-28 20:59 | XMS_ITS | Clinical Summary ---
Author Organization [facility] Address [address] [place] [address] Care Team Providers Care Specimen Processor Name Role Phone Ramona Collado APRN, C.N.P., D.N.P. P [facility] Care Provider Source Comments Patient records contain information from all sites at [facility]. For routine questions regarding patient records, call [phone] during business hours, M-F 8:00 AM - 5:00 PM Central Time. Record requests for emergency care only can be directed to [phone] at any time.[facility] Allergies Active Allergy Reactions Criticality Noted Date [...] 1 capsule by mouth daily. 06/12/2023 Active Encounters Date Type Department Care Team Description 12/18/2023 9:09 AM CDT - 12/18/2023 11:59 PM CDT Hospital Encounter Department of Radiology in [address] [phone] Ramona Collado APRN, C.N.P., D.N.P. Screening Mammogram Breast Cancer Discharge Disposition: Home or Self Care 11/14/2023 Orders Only [facility] PCP [facility] MNT Ramona Collado APRN, C.N.P., D.N.P. Screening Mammogram Breast Cancer from Last 3 Months Immunizations Name Administration Dates Next Due H1N1 All Forms 2009 Influenza, Injectable, Mdck, Quadrivalent 01/31/2022,01/19/2021 Influenza, Injectable, Quadrivalent 12/09,02/04/2019,01/04/2018,2015,12/29/2014 Influenza, Seasonal, Injectable 01/04/2011,01/08 Tdap 08/02/2016 influenza vaccine quad (FLUZONE/FLUARIX) (6 months and older)(PF) 01/13/2023,01/31/2022,01/19/2021,2019,02/04/2019,01/04/2018,12/30/2015,0 12/29/2014,01/09/2014,01/14/2013, 011,01/08/2010,2009 Family History Medical History Relation Name Comments ADD Father Mark Congenital bowel issue Father Mark Migraines Father Mark Diabetes Maternal Grandfather Norbert Heart disease Maternal Grandmother Heart Failure Arthritis Mother Emily Asthma Mother Emily Colon cancer Paternal Grandmother Black Multipl e bouts age 60-80 ADD Sister 1 Aurora Obesity Sister 2 Kay Relation Name Status Comments Father Mark Maternal Grandfather Norbert Maternal Grandmother Mother Emily Paternal Grandmother Black Sister 1 Aurora Sister 2 Kay Social History Tobacco Use Types Packs/Day Years [...] your living situation today? I have a [facility] place to live 02/23/2023 Comments No Sex and Gender Information Value Date Recorded Sex Assigned at Female 02/25/2023 8:57 PM TELEMETRY REGISTERED NURSE Legal Sex Female 9:24 AM TELEMETRY REGISTERED NURSE Gender Identity Female 02/25/2023 8:57 PM TELEMETRY REGISTERED NURSE Sexual Orientation Straight 02/25/2023 8: 57 PM TELEMETRY REGISTERED NURSE Last Filed Vital Signs Vital Sign Reading Time Taken Comments Blood Pressure 138/83 06/09/2023 9:07 AM TELEMETRY REGISTERED NURSE Pulse 66 06/09/2023 9:07 AM TELEMETRY REGISTERED NURSE Temperature 36.1 ??C (97 ??F) 05/26/2023 11:36 AM TELEMETRY REGISTERED NURSE Respiratory Rate 16 05/26/2023 11:36 AM TELEMETRY REGISTERED NURSE Oxygen Saturation - - Inhaled Oxygen Concentration - - Weight 78 kg (171 lb 15.3 oz) 09/01/2023 12:47 P M CDT Height 169.1 cm (5' 6.58) 09/01/2023 12:47 PM C DT Body Mass Index 27.28 09/01/2023 12:47 PM CDT Plan of Treatment Health Maintenance Due Date Last Done Comments CT Colonography 1965 Cologuard 1965 FIT 1965 Hepatitis C Screening 1965 Hepatitis B Vaccines (1 of 3 - 19+ 3-dose series) 1984 Zoster Vaccines (1 of 2) 2015 COVID-19 Vaccine ( season) 2023 12/16/2021, 07/20/2021, 02/14/2021, Additional history exists Influenza Vaccine (#1) 2024 , 01/31/2022, 01/31/2022, Additional history exists Mammogram 12/17/2024 12/18/2023, 10/09 (Performed elsewhere), 11/03/2022 Cervical Cancer Screening 07/28/2025 07/28/2022 Fasting Glucose for Diabetes Screening 06/08/2026 06/09/2023, 06/09/2023, 07/26/2022 DTaP,Tdap,and Td Vaccines (2 - Td or Tdap) 08/02/2026 08/02/2016 Lipid (Cholesterol) Screening 06/08/2028 06/09/2023, 07/26/2022 Colonoscopy 07/07/2031 07/06/2021, 11/05/2015 Colorectal Cancer Screening 07/07/2031 Depression Screening (Annual PHQ-2) Completed 05/26/2023, 05/26/2023 Pneumococcal vaccine (0-64 years) Aged Out No longer eligible based on patient's age to complete this topic Medical Devices Implanted Type [employer] Social Worker Device Identifier Shelf Expiration Date Model / Serial / Lot Dental Implant Misc Other Mouth Description:1 dental implant Procedures Procedure Name Priority Date/Time Associated Diagnosis Comments BI BREAST SCREENING BILATERAL WITH TOMOSYNTHESIS RAD - Routine (most inpatients and all outpatients) 12/18/2023 9:23 AM CDT Screening Mammogram Breast Cancer BASIC METABOLIC PANEL, S/P Routine 06/09/2023 9:21 AM TELEMETRY REGISTERED NURSE Health Maintenance Examination Adult LIPID PANEL, S Routine 06/09/2023 9:21 AM TELEMETRY REGISTERED NURSE Health Maintenance Examination Adult COLONOSCOPY Routine 07/06/2021 [...] Result * Lipid Panel (06/09/2023 9:21 AM TELEMETRY REGISTERED NURSE) Triglycerides 37 mg/dL 06/09/2023 1:51 PM TELEMETRY REGISTERED NURSE OWAT Comment: ----REFERENCE VALUE---- Normal: <150 mg/dL Borderline High: 150-199 mg/dL High: 200-499 mg/dL Very High: > or =500 mg/dL Cholesterol, Total 142 mg/dL 2023 1:51 PM TELEMETRY REGISTERED NURSE OWAT Comment: ----REFERENCE VALUE---- Desirable: < 200 mg/dL Borderline High: 200 - 239 mg/dL High: > or = 240 mg/dL Cholesterol, LDL, Calculated 67 mg/dL 06/09/2023 1:51 PM TELEMETRY REGISTERED NURSE OWAT Comment: ----REFERENCE VALUE---- Desirable: <100 mg/dL Above Desirable: 100-129 mg/dL Borderline High: 130-159 mg/dL High: 160-189 mg/dL Very High: >=190 mg/dL ----ADDITIONAL INFORMATION---- LDL cholesterol calculated using the Mcmahon/NIH equation. Cholesterol, HDL 66 >=50 mg/dL 06/09/19 1:51 PM TELEMETRY REGISTERED NURSE OWAT Cholesterol, Non-HDL, Calculated 76 mg/dL 06/09/2023 1:51 PM TELEMETRY REGISTERED NURSE OWAT Comment: ----REFERENCE VALUE---- Desirable: <130 mg/dL Above Desirable: 130-159 mg/dL Borderline High: 160-189 mg/dL High: 190-219 mg/dL Very High: > or =220 mg/dL Fasting (8 HR or more) Yes 06/09/2023 1:01 PM TELEMETRY REGISTERED NURSE OWAT Blood (Blood, Venous) 06/09/2023 9:21 AM TELEMETRY REGISTERED NURSE 06/09/2023 1:01 PM TELEMETRY REGISTERED NURSE Ramona Collado APRN, C.N.P., D.N.P. LA B BLOOD ADD-ON Final Result [facility] [address] [place] [id number], [facility] OWAT [facility] [place] [address] [place] [id number] * Basic Metabolic Panel (06/09/2023 9:21 AM TELEMETRY REGISTERED NURSE) Potassium, P 4.4 3.6 - 5.2 mmol/L 06/09/2023 1:51 PM TELEMETRY REGISTERED NURSE OWAT Sodium, P 142 135 - 145 mmol/L 06/09/2023 1:51 PM TELEMETRY REGISTERED NURSE OWAT Chloride, P 105 98 - 107 mmol/L 06/09/2023 1:51 PM TELEMETRY REGISTERED NURSE OWAT Bicarbonate, P 28 22 - 29 mmol/L 06/09/2023 1:51 PM TELEMETRY REGISTERED NURSE OWAT Anion Gap, P 9 7 - 15 06/09/2023 1:51 PM TELEMETRY REGISTERED NURSE OWAT BUN (Blood Urea Nitrogen), P 10 6 - 21 mg/dL 06/09/2023 1:51 PM TELEMETRY REGISTERED NURSE OWAT Creatinine 0.88 0.59 - 1.04 mg/dL 06/09/2023 1:51 PM TELEMETRY REGISTERED NURSE OWAT Estimated GFR (eGFR) 76 >=60 mL/min/BSA 06/09/2023 1:51 PM TELEMETRY REGISTERED NURSE OWAT Comment: Estimated GFR calculated using the 2020 CKD_EPI creatinine equation. Calcium, Total, P 9.1 8.6 - 10.0 mg/dL 06/09/2023 1:51 PM TELEMETRY REGISTERED NURSE OWAT Glucose, P 94 70 - 140 mg/dL 06/09/2023 1:51 PM TELEMETRY REGISTERED NURSE OWAT Blood (Blood, Venous) 06/09/2023 9:21 AM TELEMETRY REGISTERED NURSE 06/09/2023 1:01 PM TELEMETRY REGISTERED NURSE Ramona Collado APRN, C.N.P., D.N.PTenzin LA B BLOOD ADD-ON Final Result [facility] [address] [place] [address], [facility] OWAT [facility] [place] [address] [place] [address] * Colonoscopy (07/06/2021) EXT Colonoscopy Normal - See Scanned Report for Details Normal - See Scanned Report for Details, HIMS - Report Received and Scanned Comment:See media from 06/16 patient uploaded documents [id number] [facility]. Attending: Ivet Peterson MD. Historical Provider GI PROCEDURE ORDERABLES Aimee l Result from Last 3 Months or Most Recently Relevant to Health Maintenance Insurance [employer] Care Teams Specimen Processor Relationship Specialty Start Date End Date Chapin-Ramona Rachel APRN, C.N.P., D.N.P. [address] [place] [address] PCP - General Family Medicine 05/17/23
--- OUTSIDE RECORDS SUMMARY | 2024-01-28 20:59 | XMS_ITS | Encounter Summary ---
Author Organization [facility] Address [address] [place] [address] Care Team Providers Care Agricultural Researcher Name Role Phone Ramona Collado APRN, C.N.P., D.N.P. [facility] Care Provider Reason for Referral * Outpatient (Routine) - Closed Specialty Diagnoses / Procedures Referred By Annie villarreal Referred To Contact Diagnoses Screening Mammogram Breast Cancer Procedures BI Breast Screening Bilateral with Tomosynthesis Ramona Collado APRN, C.N.P., D.N.P. [address] [place] [phone] Phone: tel: fax: [facility] Region Referral ID Status Reason Start Date Expiration Date Visits Re quested Visits Authorized [id number] Closed 11/14/2023 11/13/2024 1 1 Reason for Visit * Outpatient (Routine) - Closed Specialty Diagnoses / Procedures Referred By Annie villarreal Referred To Contact Diagnoses Screening Mammogram Breast Cancer Procedures BI Breast Screening Bilateral with Tomosynthesis Ramona Collado APRN, C.N.P., D.N.P. [address] [place] [phone] Phone: tel: fax: [facility] Region Referral ID Status Reason Start Date Expiration Date Visits Re quested Visits Authorized [id number] Closed 11/14/2023 11/13/2024 1 1 Encounter Details Date Type Department Care Team (Late st Contact Info) Description 12/18/2023 9:09 AM CDT - 12/18/2023 11:59 PM CDT Hospital Encounter Department of Radiology in [address] [phone] Ramona Collado APRN, C.N.P., D.N.P. [address] [place] [phone] Screening Mammogram Breast Cancer Discharge Disposition: Home or Self Care Social History Tobacco Use Types Packs/Day Years [...] your living situation today? I have a [facility] place to live 02/23/2023 Comments No Sex and Gender Information Value Date Recorded Sex Assigned at Female 02/25/2023 8:57 PM INTERMODAL DISPATCHER Legal Sex Female 9:24 AM INTERMODAL DISPATCHER Gender Identity Female 02/25/2023 8:57 PM INTERMODAL DISPATCHER Sexual Orientation Straight 02/25/2023 8: 57 PM INTERMODAL DISPATCHER documented as of this encounter Medications at Time of Discharge albuterol 90 mcg/actuation inhaler 2 puffs every 4-6 hours PRN cough. 04/10/1979 aspirin (Roberta Low Dose Aspirin) [address] tablet Take 81 mg by mouth daily. 04/10/2012 calcium/vits D3/C/K2/minerals (BONE ESSENTIALS ORAL) Take 2 capsules by mouth daily. 04/10/2017 cetirizine (ZyrTEC) 10 mg tablet Take 10 mg by mouth daily. 04/10/2009 flaxseed oiL 1,000 mg capsule Take 1 capsule by mouth daily. 06/12/2023 naproxen sodium (Aleve) 220 mg tablet Take 220 mg by mouth daily. As needed 04/10/1994 nortriptyline (PAMELOR) 25 mg capsule Take 1 capsule (25 mg total) by mouth at bedtime. 90 capsule 3 05/26/2023 TURMERIC ORAL 500 mg. W/sisi 50 m gummies daily 04/10/2019 documented as of this encounter Plan of Treatment Not on file documented as of this encounter Procedures Procedure Name Priority Date/Time Associated Diagnosis Comments BI BREAST SCREENING BILATERAL WITH TOMOSYNTHESIS RAD - Routine (most inpatients and all outpatients) 12/18/2023 9:23 AM CDT Screening Mammogram Breast Cancer documented in this encounter Results * BI Breast Screening [...] Visit Diagnoses Diagnosis Screening Mammogram Breast Cancer documented in this encounter Additional Health Concerns Assessment Noted Time PHQ-9 Depression Total Score: 0 05/26/19 24 12:34 PM INTERMODAL DISPATCHER documented as of this encounter Care Teams Agricultural Researcher Relationship Specialty Start Date End Date Ramona Collado APRN, C.N.P., D.N.P. [address] [place] [phone] PCP - General Family Medicine 05/17/23 documented as of this encounter
--- OUTSIDE RECORDS SUMMARY | 2024-01-28 20:59 | XMS_ITS | Clinical Summary ---
Author Organization [employer] [facility] [employer] Address [place], [place] [address] Care Team Providers Care Code And Test Clerk Name Role Phone Pcp, No Primary Care Provider Unavailabl e Allergies Active Allergy Reactions Criticality Noted Date Comments Amoxicillin Rash Low 07/28/2008 Docosahexaenoic Acid-Epa 07/28/2008 Mold Extracts 07/28/2008 Pollen Extracts 07/28/2008 Shellfish Containing Products 2008 Medications Medication Sig Dispensed Refills Start Date End Date Status albuterol HFA (PRO-AIR,VENTOLIN,KY OVENTIL) 90 mcg/Actuation inhalerIndications:C ough 2 puffs every 4-6 hours PRN cough. 1 inhaler 0 04/09/2009 Active nystatin (MYCOSTATIN) creamIndications:Yea st infection of the skin Apply topically to affected area(s). Apply thin film to affected area twice daily for 7-10 days. 1 Tube 0 02/18/2010 Active nystatin powder (MYCOSTATIN) powderIndications:Ye ast infection of the skin Apply to affected area twice daily for 7-10 days. Use as needed. 1 Bottle 0 02/18/2010 Active Active Problems No known active problems Family History Medical History Relation Name Comments Other Father Congenital ash l issue. Arthritis Mother Asthma Mother Other Mother smoker Cancer-colon Other 1 Paternal GM wit h colon cancer. Heart Disease Other 2 Maternal GM askew d hernandez failure. Relation Name Status Comments Father Alive Mother Alive Other 1 Other 2 Social History Tobacco Use Types Packs/Day Years Used Date Smoking Tobacco: Never Smokeless Tobacco: Never Tobacco Cessation:Counseling Given: Yes Alcohol Use Standard Drinks/Week Comments Yes 0 (1 standard drink = 0.6 oz pure alcohol) occassional; couple drinks per week. Sex and Gender Information Value Date Recorded Sex Assigned at Not on file Gender Identity Not on file Sexual Orientation Not on file Obstetrics History Para Term AB IAB SAB Ectopic Multiple Livin g Live Births 4 1 3 3 Date Outcome GA Total Labor Labor/2nd/3rd Weight Sex Type Anes PTL Debora A1 A5 Name Clin Para SAB SAB SAB Last Filed Vital Signs Vital Sign Reading Time Taken Comments Blood Pressure 122/79 10/28/2013 2:41 PM CDT Pulse 57 10/28/2013 2:41 PM CDT Temperature 36.8 ??C (98.2 ??F) 10/28/2013 2:41 PM CD T Respiratory Rate 18 02/18/2010 9:00 AM PACKAGER HEAD Oxygen Saturation 100% 10/28/2013 2:41 PM CDT Inhaled Oxygen Concentration - - Weight 75.2 kg (165 lb 12.8 oz) 10/28/2013 2:41 PM CDT Height 167 cm (5' 5.75) 10/28/2013 2:41 PM CDT Body Mass Index 26.97 10/28/2013 2:41 PM CDT Plan of Treatment Health Maintenance Due Date Last Done Comments Tdap 1976 Depression screening for age 12+ 1977 HIV for age 15-65 1980 BMI (ht and wt on same day) for age 18+ 1983 Hepatitis C screening for age 18-79 1983 Tetanus booster 1985 Colonoscopy through age 75 2010 Mammogram for age 45-75 2010 Lipids for age 45-75 02/18/2015 02/18/2010 Zoster (shingles) series for age 50+ (1 of 2) 2015 COVID-19 vaccine series (2023- season) 2023 Influenza for age 50-64 12/10/2023 Pap test for age 21-65 07/28/2025 3, 07/28/2022, 08/02/2016, Additional history exists Pneumococcal series for age 6-64 Aged Out No longer eligible based on patient's age to complete this topic Procedures Procedure Name Priority Date/Time Associated Diagnosis Comments HPV HIGH RISK Routine 07/28/2022 7:55 AM CDT Encounter for screening for malignant neoplasm of cervix LIPID PANEL Routine 02/18/2010 10:22 AM PACKAGER HEAD Lipid screening from Last 3 Months or Most Recently Relevant to Health Maintenance Results * HPV HIGH RISK (07/28/2022 7:55 AM CDT) TYPE 16 Negative Negative 08/02/2022 11:02 AM CDT [facility] TYPE 18 Negative Negative 08/02/2022 11:02 AM CDT [facility] OTHER HIGH RISK TYPES Negative Negative 08/02/2022 11:02 AM CDT [facility] Other (Cervical/Vagina l) 07/28/2022 7:55 AM CDT 07/29/2022 2:36 PM CDT Narrative [facility] - 08/02/2022 11:02 AM CDT HPV types 16, 18, 31, 33, 35, 39, 45, 51, 52, 56, 58, 59, 66 and 68 DNA were undetectable or below the pre-set threshold. Methodology: Chris Lee 4800 HPV Test Tawana Tapia MD MICROBIOLOGY [facility] [address] [place] [address], * LIPID PANEL (02/18/2010 10:22 AM PACKAGER HEAD) CHOLESTEROL,TOTAL 151 110 - 199 mg/dL [facility] TRIGLYCERIDES 48 <150 mg/dL [facility] HDL CHOLESTEROL 65 >40 mg/dL [facility] CHOL/HDL RATIO 2.32 <4.51 [facility] LDL CHOLESTEROL 76 <131 mg/dL [facility] PATIENT STATUS Fasting [facility] Blood specimen (specimen) BLOOD SPECIMEN / Unknown 02/18/2010 10:22 AM PACKAGER HEAD 02/18/2010 10:17 AM PACKAGER HEAD Cordelia Aceves NP CHEMISTRY [facility] [address] [place] [address] from Last 3 Months or Most Recently Relevant to Health Maintenance Care Teams Code And Test Clerk Relationship Specialty Start Date End Date Pcp, No . PCP - General 10/28/13
== END 2024-01-28 21:07 | disposition home or self-care (01) ==
LOC: ED 20:57
PROVIDERS: Emergency Provider Family Medicine; PCP Family Medicine
DX: S80.861A Insect bite (nonvenomous), right lower leg, initial encounter (principal)
CPT/HCPCS: 99282; 99283; A9270